=== PATIENT | female | born 1985 | race American Indian/Alaskan Native ===

== ENCOUNTER 2018-11-30 08:59 | Emergency (ER) | payer MEDICAID ==
[2018-11-30 09:04] VITALS: BP 118/82
--- NOTE | 2018-11-30 09:18 | Emergency Department Report ---
HPI - General Chief Complaint: Dental/Oral Time Seen by Provider: 11/30/18 09:07 - HPI HPI: Room 33 The patient is a 33-year-old female presenting with a chief complaint of dental pain. Patient states for the past 4 days she's had pain in her left lower jaw presumably from was some tooth eruption. Patient denies history of fever states she has not yet seen a dentist. The patient gives her pain a score of 9/10. The patient states she's been taking ibuprofen but only helps minimally ED Past Medical Hx - Past Medical History Previous Medical History?: Yes Hx Psychiatric Treatment: Yes (schizophrenia, bipolar) - Surgical History Past Surgical History?: No - Family History Family history: no significant - Social History Smoking Status: Never Smoker Substance Use Type: None (denies illicit drug use) - Medications Home Medications: Home Medications Medication Instructions Recorded Confirmed Last Taken Type Amoxicillin [Amoxicillin TAB] 875 mg PO BID #14 tablet 11/30/18 Unknown Rx HYDROcodone/APAP 5-325 [[place] 1 - 2 each PO Q6HR PRN #14 tablet 11/30/18 Unknown Rx 5/325] Ibuprofen [Motrin 800 MG tab] 800 mg PO Q8HR PRN #20 tablet 11/30/18 Unknown Rx ED Review of Systems ROS: Stated complaint: TOOTHACHE Other details as noted in HPI Constitutional: denies: fever Eyes: denies: eye pain ENT: dental pain Physical Exam - Physical Exam Vital Signs: Vital Signs 11/30/18 09:04 Temperature 97.9 F Pulse Rate 75 Respiratory 18 Rate Blood Pressure 118/82 O2 Sat by Pulse 100 Oximetry Physical Exam: GENERAL: The patient is well-developed well-nourished female sitting in chair using cellphone not appearing to be in acute distress. [] HEENT: Normocephalic. Atraumatic. Extraocular motions are intact. Oropharynx clear. Tooth #17 erupting through gingiva. No gingival erythema or drainage visualized NECK: Supple. Trachea midline CHEST/LUNGS: There is no respiratory distress noted. SKIN: There is no rash. There is no edema. There is no diaphoresis. NEURO: The patient is awake, alert, and oriented. The patient is cooperative. The patient has no focal neurologic deficits. The patient has normal speech MUSCULOSKELETAL: There is no evidence of acute injury. ED Course Vital Signs 11/30/18 09:04 Temperature 97.9 F Pulse Rate 75 Respiratory 18 Rate Blood Pressure 118/82 O2 Sat by Pulse 100 Oximetry ED Medical Decision Making - Differential Diagnosis dental pain Critical care attestation.: If time is entered above; I have spent that time in minutes in the direct care of this critically ill patient, excluding procedure time. ED Disposition Clinical Impression: Pain, dental Disposition: TO HOME OR SELFCARE Is pt being admited?: No Does the pt Need Aspirin: No Condition: Stable Additional Instructions: Return to the emergency department should you develop worsening symptoms, inability to tolerate food or liquids, high fever or any other concerns Prescriptions: Amoxicillin [Amoxicillin TAB] 875 mg PO BID #14 tablet Ibuprofen [Motrin 800 MG tab] 800 mg PO Q8HR PRN #20 tablet PRN Reason: Pain, Moderate (4-6) HYDROcodone/APAP 5-325 [[place] 5/325] 1 - 2 each PO Q6HR PRN #14 tablet PRN Reason: Pain Referrals: [facility] [Outside] - 3-5 Days Time of Disposition: 09:21
== END 2018-11-30 09:33 | disposition home or self-care (01) ==
LOC: ED 08:59
DX: K08.89 Other specified disorders of teeth and supporting structures (principal); F25.0 Schizoaffective disorder, bipolar type; Z79.899 Other long term (current) drug therapy

== ENCOUNTER 2021-09-12 05:15 | Emergency (ER) | payer MEDICAID ==
[2021-09-12] MEDS ORDERED: traMADol 50 MG TAB PO ONE (08:29)
--- NOTE | 2021-09-12 08:32 | Emergency Department Report ---
ED ENT HPI - General Chief complaint: Dental/Oral Stated complaint: COVID/TOOTHACHE Time Seen by Provider: 09/12/21 07:58 Source: patient Mode of arrival: Ambulatory Limitations: No Limitations - History of Present Illness Initial comments: 35-year-old comes to the emergency room with right lower dental pain. She tested positive for COVID on Thursday. She has not here for her COVID symptoms. She is managing her COVID with [id number] medications. But since getting COVID she has developed dental pain. She has no abscess. No Ludewig's. No tr ismus. She is taking p.o. She is controlling her secretions. MD complaint: tooth pain Severity: moderate Severity scale (0 -10): 3 Improves with: none Worsens with: none Associated Symptoms: toothache, other (covid pos) - Related Data Previous Rx's Medication Instructions Recorded Last Taken Type Amoxicillin [Trimox CAP] 500 mg PO BID #20 capsule 09/12/21 Unknown Rx Allergies Allergy/AdvReac Type Severity Reaction Status Date / Time No Known Allergies Allergy Unverified 11/30/18 08:59 ED Dental HPI - General Chief complaint: Dental/Oral Stated complaint: COVID/TOOTHACHE Time Seen by Provider: 09/12/21 07:58 Source: patient Mode of arrival: Ambulatory Limitations: No Limitations - Related Data Previous Rx's Medication Instructions Recorded Last Taken Type Amoxicillin [Trimox CAP] 500 mg PO BID #20 capsule 09/12/21 Unknown Rx Allergies Allergy/AdvReac Type Severity Reaction Status Date / Time No Known Allergies Allergy Unverified 11/30/18 08:59 ED Review of Systems ROS: Stated complaint: COVID/TOOTHACHE Other details as noted in HPI Comment: All other systems reviewed and negative ED Past Medical Hx - Past Medical History Previous Medical History?: Yes Hx Psychiatric Treatment: Yes (schizophrenia, bipolar) - Surgical History Past Surgical History?: No - Family History Family history: no significant - Social History Smoking Status: Never Smoker Substance Use Type: None (denies illicit drug use) - Medications Home Medications: Home Medications Medication Instructions Recorded Confirmed Last Taken Type Amoxicillin [Trimox CAP] 500 mg PO BID #20 capsule 09/12/21 Unknown Rx ED Physical Exam - General Limitations: No Limitations General appearance: alert, in no apparent distress - Head Head exam: Present: atraumatic, normocephalic - Eye Eye exam: Present: normal appearance - ENT ENT exam: Present: mucous membranes moist - Expanded ENT Exam Expanded Mouth exam: Present: normal external inspection. Absent: drooling, trismus, muffled voice 1 - Other (pain) Throat exam: Negative: tonsillar erythema, tonsillomegaly, tonsillar exudate, R peritonsillar mass, L peritonsillar mass - Neck Neck exam: Present: normal inspection - Respiratory Respiratory exam: Present: normal lung sounds bilaterally. Absent: respiratory distress - Cardiovascular Cardiovascular Exam: Present: regular rate, normal rhythm. Absent: systolic murmur, diastolic murmur, rubs, gallop - GI/Abdominal GI/Abdominal exam: Present: soft, normal bowel sounds - Extremities Exam Extremities exam: Present: normal inspection - Back Exam Back exam: Present: normal inspection - Neurological Exam Neurological exam: Present: alert, oriented X3 - Psychiatric Psychiatric exam: Present: normal affect, normal mood - Skin Skin exam: Present: warm, dry, intact, normal color. Absent: rash ED Course Vital Signs 09/12/21 05:37 Temperature 98.4 F Pulse Rate 77 Respiratory 18 Rate Blood Pressure 136/71 O2 Sat by Pulse 96 Oximetry ED Medical Decision Making - Medical Decision Making Vital Signs 09/12/21 05:37 Temperature 98.4 F Pulse Rate 77 Respiratory 18 Rate Blood Pressure 136/71 O2 Sat by Pulse 96 Oximetry Patient was given Ultram for pain while in the emergency room. She states that [id number] Excedrin Tylenol Motrin etc. are not helping her dental pain. They are controlling her fever but her chest continues to hurt. Patient being discharged home with discharge plan of care including diet, activity, medications and follow-up. She understands that she needs to see the dentist for definitive care. Patient remains ambulatory, not ill nontoxic on discharge - Differential Diagnosis Dental pain, known COVID Critical care attestation.: If time is entered above; I have spent that time in minutes in the direct care of this critically ill patient, excluding procedure time. ED Disposition Clinical Impression: COVID-19, Pain, dental Disposition: HOME / SELF CARE / HOMELESS Is pt being admited?: No Does the pt Need Aspirin: No Condition: Stable Instructions: COVID-19 Frequently Asked Questions Additional Instructions: Continue your current regimen for treatment of your COVID. Follow-up with primary care as needed. Take this amoxicillin for your dental pain. Follow-up with a dentist as soon as possible. Stay well-hydrated with water. [facility] [Outside] - 3-5 Days [facility] [Outside] - 3-5 Days Forms: Work/School Release Form(ED) Time of Disposition: 08:31
[2021-09-12 08:43] VITALS: BP 133/86
== END 2021-09-12 08:43 | disposition home or self-care (01) ==
LOC: ED 05:15
DX: U07.1 COVID-19 (principal); K08.89 Other specified disorders of teeth and supporting structures; F20.9 Schizophrenia, unspecified; F31.9 Bipolar disorder, unspecified
CPT/HCPCS: 99282